=== PATIENT | male | born 1980 | race African-American/Black ===

== ENCOUNTER 2024-10-26 13:23 | Outpatient (CLI) | payer OTHER, SELFPAY ==
--- NOTE | ~2024-10-26 | MR_ITS ---
EXAMINATION: MR knee LT wo con DATE: 10/26/2024 14:05 INDICATION: Left knee pain and weakness now causing false TECHNIQUE: Magnetic resonance imaging (MRI) of the left knee was performed without intravenous contra st. Sequences included coronal PD-weighted FSE, coronal PD-weighted FS FSE, sagittal T2-weighted FSE , sagittal PD-weighted FS FSE and axial PD weighted fat saturated FSE. COMPARISON: None. FINDINGS: Medial compartment: The medial meniscus appears small, particularly the posterior horn where there is a linear horizontal tear extending to the inferior articular surface. There is a flap of displaced meniscal tissue exten ding cephalad from the junction of the medial side of the anterior horn of the meniscus into the rece ss along the nonarticular medial margin of the medial trochlea. There is mild nonuniform partial-thic kness cartilage loss along the medial tibial plateau with smooth chondral surface and without degener ative subchondral changes. Lateral compartment: Lateral meniscus is normal. Articular cartilage is normal. Patellofemoral compartment: Deep chondral ulceration and fissuring without degenerative subchondral changes along the caudal thir d of the patellar apical ridge and lateral facet. Partial-thickness chondral ulceration with chondral surface irregularity along the lateral trochlea extending to the central aspect of the trochlear josé ove. Additional deep chondral fissuring with mild underlying cortical irregularity and tiny focus of subarticular edema-like signal change at the inferior aspect of the medial trochlea. Ligaments and tendons: Anterior and posterior cruciate ligaments are normal. The medial collateral ligament and fibular dian ateral ligament complex are normal. There is mild distal quadriceps tendinopathy. There is chronic pa rtial tear approximately quadriceps tear beginning approximately 3 cm proximal to the patellar insert ion which appears to involve the myotendinous junction of the lateral side of the rectus femoris and/ or vastus intermedius attenuation the tendon and proximal retraction of the muscle belly. There is a small fluid collection at a defect in the lateral side of the quadriceps tendon 5 cm proximal to the patella. Multiple horizontal bands of magic angle artifact at the otherwise unremarkable patellar ten don likely resulting from some laxity in the tendon resulting from the partial quadriceps tendon tear . The visualized medial and lateral hamstring tendons as well as the iliotibial band are normal. Fluid: Physiologic amount of fluid in the joint space. No loose osteochondral bodies identified. Osseous/other: Normal marrow signal. No fracture or pathologic marrow replacing process. IMPRESSION: 1. Complex medial meniscal tear loss of meniscal tissue from the body and posterior horn and eighth d isplaced meniscal flap extending cephalad from the anterior horn. 2. Mild osteoarthritis in the medial and patellofemoral compartments, the latter with deep chondral u lceration and fissuring. 2. Chronic partial tear at the quadriceps myotendinous junction involving primarily the lateral side of the rectus femoris and vastus intermedius but which is incompletely imaged at the cephalad margin of the field of imaging. Reviewed, dictated and finalized at location B. [employer] [employer] IMPRESSION: 1. Complex medial meniscal tear loss of meniscal tissue from the body and poste rior horn and eighth displaced meniscal flap extending cephalad from the anteri or horn. 2. Mild osteoarthritis in the medial and patellofemoral compartments, the latte r with deep chondral ulceration and fissuring. 2. Chronic partial tear at the quadriceps myotendinous junction involving prima rily the lateral side of the rectus femoris and vastus intermedius but which is incompletely imaged at the cephalad margin of the field of imaging.
== END 2024-10-26 13:24 | disposition home or self-care (01) ==
PROVIDERS: Visit Provider Physician Assistant
DX: S83.232A Complex tear of medial meniscus, current injury, left knee, initial encounter (principal); M17.12 Unilateral primary osteoarthritis, left knee; S76.112A Strain of left quadriceps muscle, fascia and tendon, initial encounter; X58.XXXA Exposure to other specified factors, initial encounter
CPT/HCPCS: 73721